=== PATIENT | female | born 2000 | race Caucasian/White ===

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

== ENCOUNTER 2018-03-16 10:05 | Emergency (ER) | payer MEDICAID ==
[~2018-03-16] VITALS: Ht 167.6 cm; Wt 49.9 kg
[2018-03-16 10:19] VITALS: BP 132/76
[2018-03-16] MEDS ORDERED: diphenhdrAMINE HCL 25 MG CAP PO ONE (11:15)
[2018-03-16] MEDS ORDERED: KETOROLAC TROMETH 30 MG/ML 1ML VIAL IM ONE (11:15)
== END 2018-03-16 11:36 | disposition home or self-care (01) ==
LOC: ER 10:05
DX: R51 Headache (principal); R11.0 Nausea
CPT/HCPCS: 81002; 81025; 96372; 99283; J1885